=== PATIENT | male | born 1950 ===

== ENCOUNTER 2022-07-27 19:33 | Emergency (ER) | payer BC, OTHER ==
[2022-07-27] MEDS ORDERED: Albuterol/Ipratropium 3.0-0.5 MG/3 ML Neb Soln NEB STA (19:40)
[2022-07-27] MEDS ORDERED: methylPREDNISolone Sodium Succinate 125 MG/2 ML SDV IVPUSH ONE (19:40)
[2022-07-27] MEDS ORDERED: Lactated Ringers 1,000 ML IV STA (19:40)
[2022-07-27] MEDS ORDERED: Meclizine 25 MG Tab PO ONE (19:41)
[2022-07-27] MEDS ORDERED: diphenhydrAMINE 50 MG/ML SDV IVPUSH ONE (19:48)
[2022-07-27 20:19] LABS: BLOOD UREA NITROGEN,BUN 14 mg/dL (7.0-18.0); CARBON DIOXIDE,CO2 24.5 mmol/L (21.0-32.0); CHLORIDE,CL 103 mmol/L (98-107); GLUCOSE RANDOM 149 mg/dL (74-106); POTASSIUM,K 3.8 mmol/L (3.5-5.1); SODIUM,NA 138 mmol/L (136-148)
[2022-07-27 20:31] LABS: CORONAVIRUS COVID-19 NAA NEGATIVE (NEGATIVE); INFLUENZA A NAA NEGATIVE (NEGATIVE); INFLUENZA B NAA NEGATIVE (NEGATIVE)
[2022-07-27 20:34] LABS: ESTIMATED GFR 80 mL/min (>60)
[2022-07-27] MEDS ORDERED: Albuterol 0.083% 2.5 MG/3 ML Neb Soln NEB STA (21:55)
[2022-07-27] MEDS ORDERED: Magnesium Sulfate/Water 2 GM in Premix Bag 1 BAG IV ONE (22:12)
== END 2022-07-28 00:03 | disposition home or self-care (01) ==
LOC: MW.ED 19:33
DX: J45.901 Unspecified asthma with (acute) exacerbation (principal); R42 Dizziness and giddiness; E03.9 Hypothyroidism, unspecified; I10 Essential (primary) hypertension; J45.909 Unspecified asthma, uncomplicated; Z79.899 Other long term (current) drug therapy; Z20.822 Contact with and (suspected) exposure to COVID-19
CPT/HCPCS: 0240U; 36415; 71045; 80053; 81001; 83735; 83880; 84484; 85025; 87086; 93005; 96361; 96365; 96366; 96375; 99285; A9270; J1200; J2930; J3475; J7120; J7620-GY

== ENCOUNTER 2022-09-08 14:14 | Emergency (ER) | payer OTHER, BC ==
[2022-09-08] MEDS ORDERED: traMADol 50 MG Tab PO ONE (20:41)
== END 2022-09-08 21:22 | disposition home or self-care (01) ==
LOC: MW.ED 14:14
DX: S63.502A Unspecified sprain of left wrist, initial encounter (principal); E11.9 Type 2 diabetes mellitus without complications; J45.909 Unspecified asthma, uncomplicated; I10 Essential (primary) hypertension; Z79.84 Long term (current) use of oral hypoglycemic drugs; Z79.899 Other long term (current) drug therapy; W00.0XXA Fall on same level due to ice and snow, initial encounter
CPT/HCPCS: 29125; 73100; 99283; A9270